=== PATIENT | female | born 1960 | race Caucasian/White ===

== ENCOUNTER 2018-09-04 14:56 | Outpatient (REF) | payer BC, SELFPAY ==
--- NOTE | 2018-09-04 14:45 | PAPFT_PTH ---
PATIENT: Wendy Nicolas LOC: [facility] U#:[id number] AGE/SX: 58/F ROOM: RE09/04/[address]: BART Simental : 1960 BED: DIS: 09/04/2018 SPEC #: [id number] RECD: 09/04/18 17:25 STATUS: UBALDO REVincent #: [id number] CLINT: 09/04/18 14:[address]: Jigna Schmid DEPT: [facility] Cytology RECD BY: Ruba Alberto ENTERED: 09/04/18 17:26 SP TYPE: PAPFT HECTOR DR: Lucy Fine MD Tissues: 1 - CX/ENDOCX FOR PAP SMEARS Procedures: PAP THIN PREP/UVM Screening HPV DNA PROBE Comments: [id number]
== END 2018-09-04 15:16 ==
LOC: LBN 14:56
PROVIDERS: PCP Internal Medicine; Visit Provider Nurse Practitioner Family
DX: Z12.4 Encounter for screening for malignant neoplasm of cervix (principal); Z11.51 Encounter for screening for human papillomavirus (HPV)
CPT/HCPCS: 88142; 87624

== ENCOUNTER 2018-09-19 06:51 | Outpatient (CLI) | payer BC, SELFPAY ==
--- NOTE | 2018-09-19 07:45 | DI.MAMMO_ITS ---
SYMPTOM/DIAGNOSIS: SCREENING, Z12.31 MAMMOGRAMS: Mammograms were interpreted according to the usual protocol including computer analysis with CAD system, tomosynthesis and C view imaging. Comparison is made with prior examinations. Breast density, Category B. No suspicious masses or microcalcifications are seen. There is no definite evidence of malignancy. IMPRESSION: Negative mammogram. Routine screening is recommended. Category 1. MQSA ASSESSMENT OF FINDINGS: Negative. Category 1. Patient will receive a letter notifying them of these results. BI-RADS category B. There are scattered areas of fibroglandular density.
== END 2018-09-19 07:11 ==
PROVIDERS: PCP Internal Medicine; Visit Provider Nurse Practitioner Family
DX: Z12.31 Encounter for screening mammogram for malignant neoplasm of breast (principal)
CPT/HCPCS: 77063; 77067

== ENCOUNTER 2018-09-26 15:57 | Outpatient (REF) | payer BC, SELFPAY ==
--- NOTE | 2018-09-26 15:10 | ENDO_PTH ---
PATIENT: Wendy Nicolas LOC: [facility] U#:[id number] AGE/SX: 58/F ROOM: RE09/26/[address]: Sally Fernandez MD : 1960 BED: DIS: 09/26/2018 SPEC #: [id number] RECD: 09/26/18 17:25 STATUS: UBALDO REQ #: [id number] CLINT: 09/26/18 15:[address]: Sally Fernandez DEPT: Surgical Specimen RECD BY: Ruba Alberto ENTERED: 09/26/18 17:26 SP TYPE: Endo OTHR DR: Lucy Fine MD Tissues: 1 - ENDOCERVICAL BX/CURRETTE Procedures: GROSS AND MICRO LEVEL 4 Comments: [id number]
== END 2018-09-26 16:17 ==
LOC: LBN 15:57
PROVIDERS: PCP Internal Medicine; Visit Provider Obstetrics & Gynecology
DX: N87.9 Dysplasia of cervix uteri, unspecified (principal); R87.610 Atypical squamous cells of undetermined significance on cytologic smear of cervix (ASC-US); R87.810 Cervical high risk human papillomavirus (HPV) DNA test positive
CPT/HCPCS: 88305

== ENCOUNTER 2018-10-16 10:22 | Outpatient (CLI) | payer BC, SELFPAY ==
[2018-10-16 16:20] LABS: Vitamin D 25 Total 67.3 ng/ml (30-100)
== END 2018-10-16 10:42 ==
PROVIDERS: PCP Internal Medicine; Visit Provider Internal Medicine
DX: E55.9 Vitamin D deficiency, unspecified (principal)
CPT/HCPCS: 36415; 82306

== ENCOUNTER 2019-09-28 16:30 | Outpatient (REF) | payer BC, SELFPAY ==
--- NOTE | 2019-09-28 15:50 | PAPFT_PTH ---
PATIENT: Wendy Nicolas LOC: [facility] U#:[id number] AGE/SX: 59/F ROOM: RE09/28/[address]: BART Simental : 1960 BED: DIS: 09/28/2019 SPEC #: [id number] RECD: 10/01/19 12:30 STATUS: UBALDO REVincent #: [id number] CLINT: 09/28/19 15:[address]: Jigna Schmid DEPT: [facility] Cytology RECD BY: Ruba Alberto ENTERED: 10/01/19 12:31 SP TYPE: PAPFT HECTOR DR: Marlys Leggett, PhD DIRECTOR OF HEAD START Tissues: 1 - CX/ENDOCX FOR PAP SMEARS Procedures: PAP THIN PREP/UVM Screening HPV DNA PROBE Comments: [id number]
== END 2019-09-28 16:50 ==
LOC: LBN 16:30
PROVIDERS: PCP Nurse Practitioner; Visit Provider Nurse Practitioner Family
DX: Z12.4 Encounter for screening for malignant neoplasm of cervix (principal); Z11.51 Encounter for screening for human papillomavirus (HPV); R87.610 Atypical squamous cells of undetermined significance on cytologic smear of cervix (ASC-US)
CPT/HCPCS: 88142; 87624

== ENCOUNTER 2019-10-19 03:24 | Outpatient (CLI) | payer BC, SELFPAY ==
--- NOTE | 2019-10-19 15:30 | DI.MAMMO_ITS ---
EXAM: MAMMO SCREENING CLINICAL HISTORY: screening TECHNIQUE: Mammograms were interpreted according to the usual protocol including computer analysis w [employer] system, tomosynthesis and C-view imaging. COMPARISON: FINDINGS: The breasts are of moderate density with fairly symmetrical distribution of fibroglandular tissue. A n area of focal presumably glandular asymmetric density of the upper outer quadrant of the right rebeca st is unchanged comparison with multiple previous examinations including September 11 10 Sep 2017 and August 24. No dominant mass or clumped microcalcification is seen. No other change in appearance comparis on with prior studies. IMPRESSION: No specific evidence of malignancy at this time. Routine examinations are suggested at yearly inter vals in this age group according to the ACS ACR guidelines. BI-RADS Cat 1 - Negative : Breast Density - Category B - Scattered areas of fibroglandular density
== END 2019-10-19 03:44 ==
PROVIDERS: PCP Internal Medicine; Visit Provider Nurse Practitioner Family
DX: Z12.31 Encounter for screening mammogram for malignant neoplasm of breast (principal); N60.81 Other benign mammary dysplasias of right breast
CPT/HCPCS: 77063; 77067

== ENCOUNTER 2019-10-22 10:05 | Outpatient (REF) | payer BC, SELFPAY ==
--- NOTE | 2019-10-22 09:45 | CER_PTH ---
PATIENT: Wendy Nicolas LOC: [facility] U#:[id number] AGE/SX: 59/F ROOM: RE10/22/[address]: Paula Polanco DO : 1960 BED: DIS: 10/22/2019 SPEC #: [id number] RECD: 10/22/19 12:44 STATUS: UBALDO REQ #: [id number] CLINT: 10/22/19 09:[address]: Paula Polanco DEPT: Surgical Specimen RECD BY: Ruba Alberto ENTERED: 10/22/19 12:45 SP TYPE: CER OTHR DR: Lucy Fine MD Tissues: 1 - CERVICAL BIOPSY 2 - ENDOCERVICAL BX/CURRETTE Procedures: GROSS AND MICRO LEVEL 4 Comments: [id number]
== END 2019-10-22 10:25 ==
LOC: LBN 10:05
PROVIDERS: PCP Internal Medicine; Visit Provider Obstetrics & Gynecology
DX: N88.8 Other specified noninflammatory disorders of cervix uteri (principal); R87.610 Atypical squamous cells of undetermined significance on cytologic smear of cervix (ASC-US); R87.810 Cervical high risk human papillomavirus (HPV) DNA test positive; Z87.410 Personal history of cervical dysplasia
CPT/HCPCS: 88305

== ENCOUNTER 2020-01-12 13:58 | Emergency (ER) | payer BC, SELFPAY ==
[2020-01-12 14:05] VITALS: BP 126/80; PULSE 102; RESP 16; TEMP 37; O2SAT 97
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
[2020-01-12] MEDS: Ibuprofen 600 MG TAB PO (14:12)
--- NOTE | 2020-01-12 14:20 | DI.RAD_ITS ---
EXAM: XR ANKLE RT COMPLETE CLINICAL HISTORY: anterior ankle pain. TECHNIQUE: 2D digital imaging was performed. COMPARISON: No exams were available for comparison FINDINGS: BONES: No acute fracture is present. No bony destructive lesion is seen. There is a moderate size pl diogo calcaneal spur. JOINTS: The ankle mortise is normally aligned. SOFT TISSUE: There is soft tissue swelling about the ankle, particularly laterally. IMPRESSION: 1. No acute fracture or dislocation. 2. Soft tissue swelling about the ankle, particularly laterally. DATA REPOSITORY: RADIATION DOSE DELIVERED:
--- NOTE | 2020-01-12 14:46 | DI.VRAD_ITS ---
PROCEDURE INFORMATION: Exam: XR Right Ankle Exam date and time: 01/12/2020 2:26 PM Age: 60 years old Clinical indication: Other: Anterior ankle pain TECHNIQUE: Imaging protocol: XR Right ankle. Views: 3 or more views. COMPARISON: No relevant prior studies available. FINDINGS: Bones/joints: There is ankle joint effusion and diffuse soft tissue ankle swelling, more pronounced over lateral malleolus and over anterior aspect. There is no acute fracture or dislocation. There is no erosion. There is a plantar spur. Soft tissues: There is diffuse soft tissue swelling. IMPRESSION: 1. No acute fracture or dislocation. 2. Ankle Swelling and ankle joint effusion. 3. Plantar spur. Dictated and Authenticated by: Guillermo Vieyra MD. Ordering:MAINOR Teixeira MD
== END 2020-01-12 15:15 | disposition home or self-care (01) ==
PROVIDERS: Emergency Provider Emergency Medicine; PCP Nurse Practitioner
DX: M25.471 Effusion, right ankle (principal); M25.571 Pain in right ankle and joints of right foot; I10 Essential (primary) hypertension
CPT/HCPCS: 99283; 73610; 99284; E0114

== ENCOUNTER 2020-06-17 13:15 | Emergency (ER) | payer OTHER, SELFPAY ==
[2020-06-17] VITALS (34 sets, daily range): BP systolic 130–166; BP diastolic 85–101; PULSE 73–94; RESP 14–26; TEMP 37; O2SAT 95–98
--- NOTE | 2020-06-17 13:00 | RT.EKG_ITS ---
APPROVED REPORT Exam: Resting ECG Patient Location: E HR:79 bpm ECG Measurements Heart Rate 79 AXIS NM 135 P 32 QRSd 93 QRS -57 QT 370 T -19 QTc 423 Conclusion Sinus rhythm...normal P axis, V-rate 60- 99 Left anterior fascicular block...axis(240,-40), init forces inf. 1mm ST depression and T wave inversion in V2-4, lead III, no change from previous. No STEMI. I have reviewed and interpreted ECG and agree with software generated interpretation.
[2020-06-17 13:45] LABS: Abs Immature Grans 0.02 10^3/uL (0.0-0.06); Absolute Basophil Count 0.04 10^3/uL (0.0-0.2); Absolute Eosinophil Count 0.06 10^3/uL (0.0-0.7); Absolute Lymphocyte Count 1.75 10^3/uL (1.2-3.4); Absolute Monocyte Count 0.36 10^3/uL (0.1-0.8); Absolute Neutrophil Count 3.08 10^3/uL (1.2-6.7); Basophils % 0.8; Eosinophils % 1.1; HCT 42.5 % (36.0-46.0); HGB 13.9 g/dL (11.2-15.7); Immature Grans % 0.4; MCH 28.5 pg (27.0-33.0); MCHC 32.7 % (32.0-36.0); MCV 87.3 fL (80-95); MPV 10.4 fL (8.0-11.0); Monocytes % 6.8; Neutrophils % 57.9; Nucleated RBC 0 %; Platelet Count 238 10^3/uL (130-400); RBC 4.87 10^6/uL (3.93-5.22); RDW 12.8 % (11.7-14.6); RDW-SD 41.3 fL; WBC 5.31 10^3/uL (4.4-10.8)
--- NOTE | 2020-06-17 13:50 | DI.RAD_ITS ---
EXAM: XR CHEST 2V PA LATERAL CLINICAL HISTORY: Palpitations TECHNIQUE: 2D digital imaging was performed. COMPARISON: CR CHEST 2 VIEWS PA,LAT from 01/18/2014 FINDINGS: Heart size is normal. The aorta is mildly tortuous. The lungs are well inflated and clear. There i s right upper quadrant surgical clips. Mild degenerative changes are seen in the mid thoracic spine. IMPRESSION: No acute pulmonary findings. DATA REPOSITORY: RADIATION DOSE DELIVERED:
[2020-06-17 14:03] LABS: ALT 20 U/L (14-59); AST 17 U/L (15-37); Albumin 4.1 g/dL (3.4-5.0); Alkaline Phosphatase 70 U/L (46-116); BUN 13 mg/dL (7-18); Bilirubin, Total 0.5 mg/dL (0.2-1.0); CREATININE 0.8 mg/dL (0.55-1.02); Calcium 8.8 mg/dL (8.5-10.1); Chloride 103 mmol/L (98-107); Glucose 104 mg/dL (74-106); Potassium 3.3 mmol/L (3.5-5.1); Sodium 140 mmol/L (136-145); TSH 1.52 uIU/mL (0.36-3.74); Total Protein 7.9 g/dL (6.4-8.2)
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
[2020-06-17 14:07] LABS: Troponin I < 0.05 ng/mL (<0.06)
[2020-06-17] MEDS: Potassium Chloride 20 MEQ TABCR 40 MEQ PO (15:46)
--- NOTE | 2020-06-17 16:15 | RT.EKG_ITS ---
APPROVED REPORT Exam: Resting ECG Patient Location: E HR:71 bpm ECG Measurements Heart Rate 71 AXIS MO 137 P 12 QRSd 92 QRS -25 QT 376 T -24 QTc 409 Conclusion Sinus rhythm...normal P axis, V-rate 60- 99. Less than 1mm ST depression and T wave inversion in III, V2-4. No change from previous. I have reviewed and interpreted ECG and agree with software generated interpretation.
[2020-06-17 16:54] LABS: Troponin I < 0.05 ng/mL (<0.06)
== END 2020-06-17 18:05 | disposition home or self-care (01) ==
PROVIDERS: Physician Assistant; Emergency Provider Physician Assistant; PCP Nurse Practitioner
DX: R00.2 Palpitations (principal); R79.89 Other specified abnormal findings of blood chemistry; I10 Essential (primary) hypertension
CPT/HCPCS: 80053; 93005; 99284; 71046; 83735; 84443; 84484; 85025; 93010

== ENCOUNTER 2020-07-07 03:56 | Outpatient (CLI) | payer OTHER, SELFPAY ==
--- NOTE | 2020-07-22 11:03 | W.ZIOMONITOR ---
Date of service: 07/22/20 Time of Service: 11:03 14 Day Industrial Engineering Manager Referring Provider:: marianne Indications:: palps Note: There is a 14-day monitor order for indication of palpitations. ?The patient was in normal sinus rhythm for the majority of the recording with an average heart rate of 79 bpm. ?There were 12 brief episodes of supraventricular tachycardia with the longest lasting 8 beats. There were rare PACs. ?There were no episodes of ventricular tachycardia and rare PVCs. ?There were no episodes of atrial fibrillation no pauses greater than 3 seconds and no evidence of high degree heart block. ?There were 3 patient triggered events associated with normal sinus rhythm and a singular PVC.
== END 2020-07-07 03:57 | disposition home or self-care (01) ==
LOC: RT 03:56
PROVIDERS: PCP Nurse Practitioner; Visit Provider Nurse Practitioner
DX: R00.2 Palpitations (principal)
CPT/HCPCS: 93246

== ENCOUNTER 2021-01-22 10:04 | Outpatient (REF) | payer BC, SELFPAY ==
--- NOTE | 2021-01-22 09:30 | PAPFT_PTH ---
PATIENT: Wendy Nicolas LOC: [facility] U#:[id number] AGE/SX: 61/F ROOM: RE01/22/[address]: BART Simental : 1960 BED: DIS: 01/22/2021 SPEC #: [id number] RECD: 01/22/21 12:54 STATUS: UBALDO REQ #: [id number] CLINT: 01/22/21 09:[address]: Jigna Schmid DEPT: [facility] Cytology RECD BY: Ruba Alberto ENTERED: 01/22/21 12:55 SP TYPE: PAPFT OTHR DR: Marlys Leggett, PhD COSTUME MISTRESS Tissues: 1 - CX/ENDOCX FOR PAP SMEARS Procedures: PAP THIN PREP/UVM Screening HPV DNA PROBE Comments: [id number]
== END 2021-01-22 10:05 | disposition home or self-care (01) ==
LOC: LBN 10:04
PROVIDERS: PCP Nurse Practitioner; Visit Provider Nurse Practitioner Family
DX: Z12.4 Encounter for screening for malignant neoplasm of cervix (principal); Z11.51 Encounter for screening for human papillomavirus (HPV)
CPT/HCPCS: 88142; 87624

== ENCOUNTER 2021-02-12 01:36 | Outpatient (CLI) | payer BC, SELFPAY ==
--- NOTE | 2021-02-12 08:00 | DI.MAMMO_ITS ---
Exam(s) MAMMO SCREENING EXAM: MAMMO SCREENING CLINICAL HISTORY: screening,Z12.39. TECHNIQUE: Bilateral full field digital CC and MLO mammographic images were obtained with 3D tomosyn thesis and utilizing computer aided detection (CAD). COMPARISON: Prior mammograms dating back to 2011, the most recent being September 2019. FINDINGS: There are no new spiculated masses nor malignant appearing microcalcification groups. There is no significant architectural distortion nor skin thickening-retraction. IMPRESSION: No radiographic evidence of malignancy. BI-RADS Category 1 - Negative Breast Density - Category B - Scattered areas of fibroglandular density Breast density Category C or D implies that the patient has dense breast tissue. Dense breast tissue can make it harder to find cancer on a mammogram. Dense breast tissue is also associated with an incr eased risk of breast cancer. This information about the result of the mammogram report was provided to the patient to raise their awareness. Use this report when you speak with the patient about their risks for breast cancer, which includes their family history. At that time, you may recommend additional screening tests (Ultrasoun d or MRI) as these tests may add significant information. A negative radiographic report should not delay biopsy if a dominant or clinically suspicious mass is present. Up to ten percent of cancers are not identified on mammography. A negative report may reinforce clinical impression. Adenosis and dense breasts may obscure an underlying neoplasm. False positive reports average 6 to 10%. Patient will receive a letter notifying them of these results.
== END 2021-02-12 01:56 ==
PROVIDERS: PCP Nurse Practitioner; Visit Provider Nurse Practitioner
DX: Z12.31 Encounter for screening mammogram for malignant neoplasm of breast (principal)
CPT/HCPCS: 77063; 77067

== ENCOUNTER 2021-03-16 08:48 | Outpatient (REF) | payer BC, SELFPAY ==
--- NOTE | 2021-03-16 08:30 | ENDO_PTH ---
PATIENT: Wendy Nicolas LOC: [facility] U#:[id number] AGE/SX: 61/F ROOM: RE03/16/[address]: Paula Polanco DO : 1960 BED: DIS: 03/16/2021 SPEC #: [id number] RECD: 03/16/21 12:54 STATUS: UBALDO RE #: [id number] CLINT: 03/16/21 08:[address]: Paula Polanco DEPT: Surgical Specimen RECD BY: Ruba Alberto ENTERED: 03/16/21 12:54 SP TYPE: Endo OTHR DR: Marlys Leggett, PhD BANJO REPAIRER Tissues: 1 - ENDOCERVICAL BX/CURRETTE Procedures: GROSS AND MICRO LEVEL 4 Comments: [id number]
== END 2021-03-16 08:49 | disposition home or self-care (01) ==
LOC: LBN 08:48
PROVIDERS: PCP Nurse Practitioner; Visit Provider Obstetrics & Gynecology
DX: R87.810 Cervical high risk human papillomavirus (HPV) DNA test positive (principal)
CPT/HCPCS: 88305

== ENCOUNTER 2021-08-31 15:39 | Outpatient (REF) | payer BC, SELFPAY ==
--- NOTE | 2021-08-31 13:50 | SKI_PTH ---
PATIENT: Wendy Nicolas LOC: [facility] U#:[id number] AGE/SX: 61/F ROOM: RE08/31/[address]: Amanda Reilly : 1960 BED: DIS: 08/31/2021 SPEC #: [id number] RECD: 08/31/21 18:05 STATUS: UBALDO REVincent #: [id number] CLINT: 08/31/21 13:[address]: Amanda Reilly DEPT: Surgical Specimen RECD BY: Ruba Alberto ENTERED: 08/31/21 18:08 SP TYPE: TYRESE YOUNG DR: Marlys Leggett, PhD CS ASSOCIATE Tissues: 1 - SKIN CYST/TAG/DEBRIDEMENT 2 - SKIN CYST/TAG/DEBRIDEMENT Procedures: GROSS AND MICRO LEVEL 3 Comments: [id number]
== END 2021-08-31 15:40 | disposition home or self-care (01) ==
LOC: LBN 15:39
PROVIDERS: PCP Nurse Practitioner; Visit Provider Surgery
DX: L72.12 Trichodermal cyst (principal)
CPT/HCPCS: 88304

== ENCOUNTER 2022-01-16 18:36 | Outpatient (REF) | payer BC, SELFPAY ==
[2022-01-16 19:26] LABS: Anion Gap 9.5 mmol/L (3-11); BUN 12 mg/dL (7-18); CO2 27.5 mmol/L (21.0-32.0); CREATININE 0.7 mg/dL (0.55-1.02); Calcium 9.2 mg/dL (8.5-10.1); Chloride 104 mmol/L (98-107); Estimated GFR 98.34 (mL/min/1.73m2); Glucose 86 mg/dL (74-106); Sodium 141 mmol/L (136-145)
== END 2022-01-16 18:37 | disposition home or self-care (01) ==
LOC: LBN 18:36
PROVIDERS: PCP Nurse Practitioner; Visit Provider Nurse Practitioner Family
DX: Z00.00 Encounter for general adult medical examination without abnormal findings (principal); I10 Essential (primary) hypertension
CPT/HCPCS: 80048

== ENCOUNTER → 2022-02-17 01:52 | Outpatient (CLI) | payer BC, SELFPAY ==
--- NOTE | 2022-02-17 08:00 | DI.MAMMO_ITS ---
Exam(s) MAMMO SCREENING EXAM: MAMMO SCREENING CLINICAL HISTORY: breast cancer screening,z12.39 TECHNIQUE: Bilateral full field digital CC and MLO mammographic images were obtained with 3D tomosyn thesis and utilizing computer aided detection (CAD). COMPARISON: Available for comparison. FINDINGS: Masses/Architectural Distortion: None seen. Microcalcifications: No suspicious pleomorphic-type are seen. Skin Thickening/Nipple Retraction: None. IMPRESSION: 1. No significant interval change with no specific features of malignancy noted. 2. Unless there is more urgent need, screening mammography is recommended, as per [employer] guidelines. BI-RADS Category 1 - Negative Breast Density - Category B - Scattered areas of fibroglandular density Breast density category C or D implies that the patient has dense breast tissue. Dense breast tissue is very common and is not abnormal but dense breast tissue can make it harder to find cancer on a ma mmogram. Also, dense breast tissue may increase their breast cancer risk. This information about the result of the mammogram report was provided to the patient to raise their awareness. Use this report when you speak with the patient about their risks for breast cancer, which includes their family hist ory. At that time, you may recommend for more screening tests (Ultrasound or MRI) as they might be us eful based on their risk. A negative radiographic report should not delay biopsy if a dominant or clinically suspicious mass is present. Up to ten percent of cancers are not identified on mammography. A negative report may reinforce clinical impression. Adenosis and dense breasts may obscure an underlying neoplasm. False positive reports average 6 to 10%. Patient will receive a letter notifying them of these results.
== END ==
PROVIDERS: PCP Nurse Practitioner; Visit Provider Nurse Practitioner Family
DX: Z12.31 Encounter for screening mammogram for malignant neoplasm of breast (principal)
CPT/HCPCS: 77063; 77067

== ENCOUNTER 2022-02-18 14:40 | Outpatient (REF) | payer BC, SELFPAY ==
--- NOTE | 2022-02-18 14:30 | PAPFT_PTH ---
PATIENT: Wendy Nicolas LOC: [facility] U#:[id number] AGE/SX: 62/F ROOM: RE02/18/[address]: Paula Polanco DO : 1960 BED: DIS: 02/18/2022 SPEC #: [id number] RECD: 02/18/22 17:51 STATUS: UBALDO REQ #: [id number] CLINT: 02/18/22 14:[address]: Anisha Treviño DEPT: [facility] Cytology RECD BY: Ruba Alberto ENTERED: 02/18/22 17:51 SP TYPE: PAPFT HECTOR DR: Marlys Leggett, PhD ACTIVITIES DIRECTOR SCOUTING Tissues: 1 - CX/ENDOCX FOR PAP SMEARS Procedures: PAP THIN PREP/UVM Screening HPV DNA PROBE Comments: [id number] (HPV 16 & 18/45)
== END 2022-02-18 14:41 | disposition home or self-care (01) ==
LOC: LBN 14:40
PROVIDERS: PCP Nurse Practitioner; Visit Provider Obstetrics & Gynecology
DX: R87.610 Atypical squamous cells of undetermined significance on cytologic smear of cervix (ASC-US) (principal); Z12.4 Encounter for screening for malignant neoplasm of cervix; R87.810 Cervical high risk human papillomavirus (HPV) DNA test positive; Z11.51 Encounter for screening for human papillomavirus (HPV)
CPT/HCPCS: 88142; 87624

== ENCOUNTER 2022-03-25 12:35 | Outpatient (REF) | payer BC, SELFPAY ==
--- NOTE | 2022-03-25 08:25 | ENDO_PTH ---
PATIENT: Wendy Nicolas LOC: [facility] U#:[id number] AGE/SX: 62/F ROOM: RE03/25/[address]: Paula Polanco DO : 1960 BED: DIS: 03/25/2022 SPEC #: [id number] RECD: 03/25/22 13:06 STATUS: UBALDO RE #: [id number] CLINT: 03/25/22 08:[address]: Paula Polanco DEPT: Surgical Specimen RECD BY: Ruba Alberto ENTERED: 03/25/22 13:06 SP TYPE: Endo OTHR DR: Vineet Ortiz DNP Tissues: 1 - ENDOCERVICAL BX/CURRETTE 2 - CERVICAL BIOPSY Procedures: GROSS AND MICRO LEVEL 4 Comments: [id number]
== END 2022-03-25 12:36 | disposition home or self-care (01) ==
LOC: LBN 12:35
PROVIDERS: PCP Nurse Practitioner Family; Visit Provider Obstetrics & Gynecology
DX: N72 Inflammatory disease of cervix uteri (principal)
CPT/HCPCS: 88305

== ENCOUNTER 2022-11-03 13:35 | Outpatient (REF) | payer BC, SELFPAY | END 2022-11-03 13:36 | disposition home or self-care (01) | LOC: LBN 13:35 | PROVIDERS: PCP Nurse Practitioner Family; Visit Provider Family Medicine | DX: R30.0 Dysuria (principal) | CPT/HCPCS: 87086 ==

== ENCOUNTER 2023-02-09 03:59 | Outpatient (CLI) | payer BC, SELFPAY ==
[2023-02-09 09:26] LABS: ALT 20 U/L (14-59); AST 11 U/L (15-37); Albumin 3.9 g/dL (3.4-5.0); Alkaline Phosphatase 67 U/L (46-116); Anion Gap 7.9 mmol/L (3-11); BUN 22 mg/dL (7-18); Bilirubin, Total 0.8 mg/dL (0.2-1.0); CO2 26.1 mmol/L (21.0-32.0); CREATININE 0.9 mg/dL (0.55-1.02); Calcium 9.2 mg/dL (8.5-10.1); Calculated LDL 105 mg/dL (<100); Chloride 104 mmol/L (98-107); Cholesterol 195 mg/dL (<200); Estimated GFR 72.28 (mL/min/1.73m2); Glucose 99 mg/dL (74-106); HDL Cholesterol 76 mg/dL (40-60); Potassium 3.9 mmol/L (3.5-5.1); Sodium 138 mmol/L (136-145); Total Protein 7.6 g/dL (6.4-8.2); Triglyceride 73 mg/dL (<150)
[2023-02-10 10:47] LABS: HIV-1/2 Ag & Ab Screen Negative (Negative)
[2023-02-10 12:12] LABS: Hepatitis C Ab w Rflx HCV PCR Negative (Negative)
== END 2023-02-09 04:00 | disposition home or self-care (01) ==
LOC: LBO 03:59
PROVIDERS: PCP Nurse Practitioner Family; Visit Provider Nurse Practitioner Family
DX: Z13.220 Encounter for screening for lipoid disorders (principal); Z11.59 Encounter for screening for other viral diseases; Z11.4 Encounter for screening for human immunodeficiency virus [HIV]
CPT/HCPCS: 36415; 80053; 80061; 86803; 87389

== ENCOUNTER 2023-02-22 16:29 | Outpatient (REF) | payer BC, SELFPAY ==
--- NOTE | 2023-02-22 15:20 | PAPFT_PTH ---
PATIENT: Wendy Nicolas LOC: [facility] U#:[id number] AGE/SX: 63/F ROOM: RE02/22/[address]: Paula Polanco DO : 1960 BED: DIS: 02/22/2023 SPEC #: [id number] RECD: 02/22/23 17:18 STATUS: UBALDO REQ #: [id number] CLINT: 02/22/23 15:[address]: Paula Polanco DEPT: [facility] Cytology RECD BY: Ruba Alberto ENTERED: 02/22/23 17:19 SP TYPE: PAPFT OTHR DR: Vineet Ortiz DNP Tissues: 1 - CX/ENDOCX FOR PAP SMEARS Procedures: PAP THIN PREP/UVM Screening HPV DNA PROBE Comments: [id number] (HPV 16 & 18/45)
== END 2023-02-22 16:30 | disposition home or self-care (01) ==
LOC: LBN 16:29
PROVIDERS: PCP Nurse Practitioner Family; Visit Provider Obstetrics & Gynecology
DX: Z12.4 Encounter for screening for malignant neoplasm of cervix (principal)
CPT/HCPCS: 88142; 87624

== ENCOUNTER → 2023-03-09 01:14 | Outpatient (CLI) | payer BC, SELFPAY ==
--- NOTE | 2023-03-09 12:55 | DI.MAMMO_ITS ---
Exam(s) MAMMO SCREENING EXAM: MAMMO SCREENING CLINICAL HISTORY: screening,z12.39. TECHNIQUE: Bilateral full field digital CC and MLO mammographic images were obtained with 3D tomosyn thesis and utilizing computer aided detection (CAD). COMPARISON: Prior mammograms were reviewed. FINDINGS: There has been no significant change in the appearance and distribution of the fibroglandular tissue. Asymmetric tissue upper-outer quadrant right breast is unchanged from all prior mammograms. There are no new spiculated masses nor malignant appearing microcalcification groups. There is no significant architectural distortion nor skin thickening-retraction. IMPRESSION: No radiographic evidence of malignancy. BI-RADS Category 1 - Negative Breast Density - Category B - Scattered areas of fibroglandular density Breast density Category C or D implies that the patient has dense breast tissue. Dense breast tissue can make it harder to find cancer on a mammogram. Dense breast tissue is also associated with an incr eased risk of breast cancer. This information about the result of the mammogram report was provided to the patient to raise their awareness. Use this report when you speak with the patient about their risks for breast cancer, which includes their family history. At that time, you may recommend additional screening tests (Ultrasoun d or MRI) as these tests may add significant information. A negative radiographic report should not delay biopsy if a dominant or clinically suspicious mass is present. Up to ten percent of cancers are not identified on mammography. A negative report may reinforce clinical impression. Adenosis and dense breasts may obscure an underlying neoplasm. False positive reports average 6 to 10%. Patient will receive a letter notifying them of these results.
== END ==
PROVIDERS: PCP Nurse Practitioner Family; Visit Provider Obstetrics & Gynecology
DX: Z12.31 Encounter for screening mammogram for malignant neoplasm of breast (principal)
CPT/HCPCS: 77063; 77067

== ENCOUNTER 2023-04-06 14:01 | Outpatient (REF) | payer BC, SELFPAY ==
--- NOTE | 2023-04-06 13:45 | ENDO_PTH ---
PATIENT: Wendy Nicolas LOC: N U#:[id number] AGE/SX: 63/F ROOM: RE04/06/[address]: Paula Polanco DO : 1960 BED: DIS: 04/06/2023 SPEC #: [id number] RECD: 04/06/23 17:51 STATUS: UBALDO RE #: [id number] CLINT: 04/06/23 13:[address]: Paula Polanco DEPT: Surgical Specimen RECD BY: Ruba Alberto ENTERED: 04/06/23 17:51 SP TYPE: Endo OTHR DR: Vineet Ortiz DNP Tissues: 1 - ENDOCERVICAL BX/CURRETTE 2 - CERVICAL BIOPSY Procedures: GROSS AND MICRO LEVEL 4 IMMUNOPEROXIDASE STAIN Comments: [id number]
== END 2023-04-06 14:02 | disposition home or self-care (01) ==
LOC: LBN 14:01
PROVIDERS: PCP Nurse Practitioner Family; Visit Provider Obstetrics & Gynecology
DX: R87.619 Unspecified abnormal cytological findings in specimens from cervix uteri (principal)
CPT/HCPCS: 88305; 88361

== ENCOUNTER 2024-02-01 11:48 | Outpatient (REF) | payer BC, SELFPAY ==
[2024-02-01 13:57] LABS: Anion Gap 11.6 mmol/L (3-11); BUN 14 mg/dL (7-18); CO2 25.4 mmol/L (21.0-32.0); CREATININE 0.8 mg/dL (0.55-1.02); Calcium 8.7 mg/dL (8.5-10.1); Chloride 109 mmol/L (98-107); Estimated GFR 82.74 (mL/min/1.73m2); Glucose 102 mg/dL (74-106); Potassium 4.2 mmol/L (3.5-5.1); Sodium 146 mmol/L (136-145)
== END 2024-02-01 11:49 | disposition home or self-care (01) ==
LOC: LBN 11:48
PROVIDERS: PCP Nurse Practitioner Family; Visit Provider Nurse Practitioner Family
DX: I10 Essential (primary) hypertension (principal)
CPT/HCPCS: 80048

== ENCOUNTER 2024-03-01 14:16 | Outpatient (REF) | payer BC, SELFPAY ==
--- NOTE | 2024-03-01 14:20 | PAPFT_PTH ---
PATIENT: Wendy Nicolas LOC: [facility] U#:[id number] AGE/SX: 64/F ROOM: RE03/01/[address]: Paula Polanco DO : 1960 BED: DIS: 03/01/2024 SPEC #: [id number] RECD: 03/01/24 18:13 STATUS: UBALDO REQ #: [id number] CLINT: 03/01/24 14:[address]: Paula Polanco DEPT: [facility] Cytology RECD BY: Ruba Alberto ENTERED: 03/01/24 18:13 SP TYPE: PAPFT OTHR DR: Vineet Ortiz DNP Tissues: 1 - CX/ENDOCX FOR PAP SMEARS Procedures: PAP THIN PREP/UVM Screening HPV DNA PROBE Comments: [id number] (HPV 16 & 18/45)
== END 2024-03-01 14:17 | disposition home or self-care (01) ==
LOC: LBN 14:16
PROVIDERS: PCP Nurse Practitioner Family; Visit Provider Obstetrics & Gynecology
DX: Z01.419 Encounter for gynecological examination (general) (routine) without abnormal findings (principal)
CPT/HCPCS: 88142; 87624

== ENCOUNTER 2024-03-27 01:00 | Outpatient (CLI) | payer BC, SELFPAY ==
--- NOTE | 2024-03-27 07:56 | DI.MAMMO_ITS ---
Exam(s) MAMMO SCREENING EXAM: MAMMO SCREENING CLINICAL HISTORY: screening,z12.39 TECHNIQUE: Mammograms were interpreted according to the usual protocol including computer analysis w [employer] CAD system, tomosynthesis and C-view imaging. COMPARISON: 2014 through 2022 FINDINGS: The breasts are composed of scattered fibroglandular densities, Breast Density category B. No suspicious masses or suspicious microcalcifications are seen. No skin thickening or abnormal axillary lymph nodes are seen. There has been no significant change from prior exams. IMPRESSION: BI-RADS Category 1, Negative mammogram Yearly screening mammography is recommended. Breast Density - Category B, scattered fibroglandular densities. A negative radiographic report should not delay biopsy if a dominant or clinically suspicious mass is present. Up to ten percent of cancers are not identified on mammography. A negative report may reinforce clinical impression. Adenosis and dense breasts may obscure an underlying neoplasm. False positive reports average 6 to 10%. Patient will receive a letter notifying them of these results.
== END 2024-03-27 01:20 ==
LOC: DI 01:00
PROVIDERS: PCP Nurse Practitioner Family; Visit Provider Obstetrics & Gynecology
DX: Z12.31 Encounter for screening mammogram for malignant neoplasm of breast (principal); R92.323 Mammographic fibroglandular density, bilateral breasts
CPT/HCPCS: 77063; 77067

== ENCOUNTER 2024-04-09 15:51 | Outpatient (REF) | payer BC, SELFPAY ==
--- NOTE | 2024-04-09 15:30 | ENDO_PTH ---
PATIENT: Wendy Nicolas LOC: [facility] U#:[id number] AGE/SX: 64/F ROOM: RE04/09/[address]: Paula Polanco DO : 1960 BED: DIS: 04/09/2024 SPEC #: [id number] RECD: 04/09/24 17:11 STATUS: UBALDO REQ #: [id number] CLINT: 04/09/24 15:[address]: Paula Polanco DEPT: Surgical Specimen RECD BY: Ruba Alberto ENTERED: 04/09/24 17:12 SP TYPE: Endo OTHR DR: Vineet Ortiz DNP Tissues: 1 - ENDOCERVICAL BX/CURRETTE 2 - CERVICAL BIOPSY Procedures: GROSS AND MICRO LEVEL 4 Comments: [id number]
== END 2024-04-09 15:52 | disposition home or self-care (01) ==
LOC: LBN 15:51
PROVIDERS: PCP Nurse Practitioner Family; Visit Provider Obstetrics & Gynecology
DX: R87.618 Other abnormal cytological findings on specimens from cervix uteri (principal)
CPT/HCPCS: 88305

== ENCOUNTER 2025-03-06 01:53 | Outpatient (CLI) | payer SELFPAY ==
[2025-03-06 08:17] LABS: Abs Immature Grans 0.00 10^3/uL (0.0-0.06); HCT 40.3 % (36.0-46.0); HGB 13.4 g/dL (11.2-15.7); Immature Grans % 0.0 %; MCH 29.5 pg (27.0-33.0); MCHC 33.3 % (32.0-36.0); MCV 89 fL (80-95); MPV 11.3 fL (8.0-11.0); Platelet Count 191 10^3/uL (130-400); RBC 4.54 10^6/uL (3.93-5.22); RDW 12.9 % (11.7-14.6); RDW-SD 42.2 fL; WBC 4.13 10^3/uL (4.4-10.8)
[2025-03-06 08:35] LABS: ALT 11 U/L (10-49); AST 15 U/L (<34); Albumin 4.4 g/dL (3.4-5.0); Alkaline Phosphatase 72 U/L (46-116); Anion Gap 8.5 mmol/L (3-11); BUN 13 mg/dL (9-23); Bilirubin, Total 1.10 mg/dL (0.2-1.2); CO2 27.5 mmol/L (20.0-31.0); Calcium 8.9 mg/dL (8.3-10.6); Chloride 107 mmol/L (98-107); Glucose 103 mg/dL (74-106); Potassium 3.7 mmol/L (3.5-5.1); Sodium 143 mmol/L (136-145); Total Protein 7.1 g/dL (5.7-8.2)
[2025-03-06 08:36] LABS: TSH (W/Ref FT4) 1.34 uIU/mL (0.55-4.78)
== END 2025-03-06 01:54 | disposition home or self-care (01) ==
LOC: LBO 01:53
PROVIDERS: PCP Nurse Practitioner Family; Visit Provider Nurse Practitioner Family
DX: R19.7 Diarrhea, unspecified (principal); R42 Dizziness and giddiness
CPT/HCPCS: 36415; 80053; 84443; 85025

== ENCOUNTER 2025-03-20 10:44 | Outpatient (CLI) | payer BC, SELFPAY ==
[2025-03-20 11:24] LABS: ESR 3 mm/hr (0-30)
== END 2025-03-20 10:45 | disposition home or self-care (01) ==
LOC: LBO 10:44
PROVIDERS: PCP Nurse Practitioner Family; Visit Provider Surgery
DX: R19.7 Diarrhea, unspecified (principal)
CPT/HCPCS: 82784; 83516; 85652; 83630

== ENCOUNTER 2025-03-21 16:08 | Outpatient (REF) | payer BC, SELFPAY ==
[2025-03-23 11:05] LABS: Campylobacter PCR Negative (Negative); Shiga Toxin PCR Negative (Negative); Shigella/Enteroinvasive Ecoli Negative (Negative)
[2025-03-25 14:52] LABS: Helicobacter pylori Ag, Feces Negative (Negative)
== END 2025-03-22 12:32 | disposition home or self-care (01) ==
LOC: LBN 16:08
PROVIDERS: PCP Nurse Practitioner Family; Visit Provider Surgery
DX: R19.7 Diarrhea, unspecified (principal)
CPT/HCPCS: 87015; 87269; 87272; 87338; 87505; 82272; 83630

== ENCOUNTER 2025-03-25 10:33 | Day surgery (SDC) | payer BC, SELFPAY ==
--- NOTE | 2025-03-25 10:41 | W.ANESPRE ---
General Info Date of Service Date Performed: 03/25/25 Height: 5 ft 3 in Weight: 71.781 kg Body Mass Index (BMI): 28.0 Surgical Procedure: Operation Date: 03/25/25 11:50 Proposed Procedure Side Surgeon p Colonoscopy/Gastroscopy Zofia Oseguera MD Meds Allergies and Home Medications Allergies Allergy/AdvReac Type Severity Reaction Status Date / Time lisinopril AdvReac Mild cough Verified 03/25/25 11:04 SEASONAL ALLERGIES Allergy Unknown Wheezing Uncoded 03/25/25 11:04 Home Medication ?Medication ?Instructions ?Recorded cetirizine 10 mg tablet (Zyrtec) 10 mg PO DAILY PRN #90 tab-caps 11/04/14 cholecalciferol (vitamin D3) 25 1,000 unit PO DAILY 01/30/19 mcg (1,000 unit) capsule ibuprofen 600 mg tablet 600 mg PO Q8H PRN pain #30 tabs 02/01/24 losartan 100 mg tablet See Rx Instructions .Route 02/01/24 .COMPLEX #90 tabs fluticasone propionate 50 1 spray intranasal Q12H #16 grams 07/31/24 mcg/actuation nasal spray,suspension (Flonase Allergy Relief) bisacodyl 5 mg tablet,delayed 5 mg PO ONCE colonscopy bowel prep 03/20/25 release (Dulcolax (bisacodyl)) #4 tabs colestipol 1 gram tablet 1 g PO DAILY #30 tabs 03/20/25 polyethylene glycol 3350 17 238 g PO ONCE colonoscopy prep 03/20/25 gram/dose oral powder #238 grams Current Visit Medications: Current Medications Generic Name Dose Route Start Last Admin Trade Name Freq PRN Reason Stop Dose Admin Ringer's Solution 1,000 mls @ 80 mls/hr 03/25/25 06:00 IV 03/25/25 23:59 INFUSION KOLTON Sodium Biphosphate/Sodium Phosphate 133 ml 03/25/25 06:00 Na Phosphate Enema-Adult 133 Ml Btl VA 03/25/25 23:59 DIRECTED PRN Sodium Chloride 0 ml 03/25/25 06:00 Normal Saline Flush 10 Ml Syr IV 03/25/25 23:59 PRN PRN Sodium Chloride 0 ml 03/25/25 06:00 Normal Saline 10 Ml Vial IJ 03/25/25 23:59 DIRECTED PRN Sterile Water 0 ml 03/25/25 06:00 Water,Injection,Sterile 10 Ml Vial IJ 03/25/25 23:59 DIRECTED PRN PFSH Active Problems Active Problems: Problem Status Onset Code Lightheadedness Acute R42 Diarrhea Acute R19.7 Urethral polyp Acute N36.2 Mass of urethra Acute N36.8 Right shoulder pain Acute M25.511 Arthritis Acute M19.90 Annual physical exam Acute Z00.00 Breast cancer screening Acute Z12.39 Cyst Acute Hypertension Chronic I10 ASCUS with positive high risk HPV Acute Hip pain, right Chronic M25.551 Vitamin D deficiency Chronic E55.9 Gastroesophageal reflux Chronic K21.9 Medical History Medical History Influenza-like illness Pilar cyst of scalp Dermoid cyst of scalp Seasonal allergic rhinitis Gallstones Liver cyst Surgical History Surgical History History of cone biopsy of cervix Ligation of fallopian tube 11/1999 Tonsillectomy EGD - MAC (01/14/14) Colonoscopy - MAC (01/11/17) Cholecystectomy 06/1983 Idiopathic scoliosis (~1998) JASSON II Tobacco Smoking/Tobacco Use Status: Former Tobacco Use Passive smoking exposure: Yes Second hand exposure: Yes Alcohol Alcohol Intake: current Alcohol intake frequency: a few times a week Alcohol type: wine and hard liquor Substance Use Substance use type: does not use Prental History History 4 Para 3 Hx # Term Pregnancies Multiple births Hx # Pregnancies Ectopic pregnancies AB induced Hx Number of Living Children AB spontaneous Vital Signs and Lab Results Lab Results Complete Blood Count: WBC, (4.4-10.8) 4.13 10^3/uL L 03/06/25, 08:05 RBC, (3.93-5.22) 4.54 10^6/uL 03/06/25, 08:05 Hgb, (11.2-15.7) 13.4 g/dL 03/06/25, 08:05 Hct, (36.0-46.0) 40.3 % 03/06/25, 08:05 Plt Count, (130-400) 191 10^3/uL 03/06/25, 08:05 Complete Metabolic Panel: Sodium, (136-145) 143 mmol/L 03/06/25, 08:05 Potassium, (3.5-5.1) 3.7 mmol/L 03/06/25, 08:05 Chloride, (98-107) 107 mmol/L 03/06/25, 08:05 Carbon Dioxide, (20.0-31.0) 27.5 mmol/L 03/06/25, 08:05 BUN, (9-23) 13 mg/dL 03/06/25, 08:05 Creatinine, (0.55-1.02) 0.8 mg/dL 03/06/25, 08:05 Est GFR (CKD-EPI 2020), (mL/min/1.73m2) 77.76 03/06/25, 08:05 Calcium, (8.3-10.6) 8.9 mg/dL 03/06/25, 08:05 Albumin, (3.4-5.0) 4.4 g/dL 03/06/25, 08:05 Glucose, (74-106) 103 mg/dL 03/06/25, 08:05 Liver Function Panel: ALT, (10-49) 11 U/L 03/06/25, 08:05 AST, (<34) 15 U/L 03/06/25, 08:05 Thyroid Panel: TSH, (0.55-4.78) 1.34 uIU/mL 03/06/25, 08:05 Anesthesia Assessment and Plan Anesthesia History Personal History: No History of Anesthesia Complications Family History: No Family History of Anesthesia Complications Exercise Tolerance Exercise Tolerance: Metabolic Equivalents>4 Cardiac & Pulmonary Exam Cardiac Exam: Normal S1/S2 Heart Sounds Pulmonary Exam: Clear Bilateral Breath Sounds Implantable Cardiac Device Does patient have a Pacemaker or an ICD?: No Airway Exam Known Difficult Airway: No Mallampati Class: 4 Mouth Opening: Narrow (< 3cm) Thyromental Distance: Greater than 3 cm Neck Range of Motion: Full ROM Neck Circumference: Normal Teeth Condition: Normal Dentition ASA Classification ASA Score: ASA 2 Emergency Case?: No NPO Status NPO Status: NPO Clears >2 hours, Solids >8 hours Anesthesia Plan Resuscitation Status: Full Code Anesthesia Technique: General Anesthesia Airway Planned: Natural Airway Monitors Used: Standard Monitors Preoperative Comments:: 65 yo for EGD/colo. Sig PMHx: HTN (losartan), GERD (occ, no meds). Former smoker (1978), occ EtOH. ECG: sinus. Previous Anes: - colo, prop, natural airway, no issues.
[2025-03-25 10:46] VITALS: BMI 28.0
[2025-03-25 10:58] VITALS: BP 133/97; PULSE 87; RESP 16; TEMP 36.2; O2SAT 98
[2025-03-25] MEDS: Lactated Ringers 1,000 ML 80 ML IV (11:15)
--- NOTE | 2025-03-25 12:45 | BOWEL_PTH ---
PATIENT: Wendy Nicolas LOC: [facility] U#:[id number] AGE/SX: 65/F ROOM: RE03/25/[address]: Zofia Oseguera MD : 1960 BED: DIS: 03/25/2025 SPEC #: [id number] RECD: 03/25/25 18:08 STATUS: UBALDO REVincent #: [id number] CLINT: 03/25/25 12:[address]: Zofia Oseguera DEPT: Surgical Specimen RECD BY: Ruba Alberto ENTERED: 03/25/25 18:10 SP TYPE: Bowel OTHR DR: Vineet Ortiz, POLI Tissues: 1 - BIOPSY BOWEL 2 - STOMACH BIOPSY 3 - BIOPSY BOWEL 4 - BIOPSY BOWEL 5 - BIOPSY BOWEL 6 - BIOPSY BOWEL 7 - BIOPSY BOWEL Procedures: GROSS AND MICRO LEVEL 4 Comments: [id number]
--- NOTE | 2025-03-25 12:48 | W.PM.ENDDOP ---
Date of service: 12/20/24 Time of Service: 12:48 Endoscopy Report DATE OF PROCEDURE: 03/25/25 PRE-OP DIAGNOSIS: diarrhea, enteropathy evaluation POST-OP DIAGNOSIS: same PROCEDURE: EGD with biopsy SURGEON: Zofia Oseguera ANESTHESIA TYPE: General:No Airway ESTIMATED BLOOD LOSS: 2 PATHOLOGY: other (1. duodenum biopsy. 2. antrum biopsy) COMPLICATIONS: None DISPOSITION: same day PROCEDURE DESCRIPTION: Lubricated endoscope was passed through a bite block into the second portion of the duodenum. The endoscope was withdrawn and the duodenum stomach and esophageal mucosa examined. The duodenum appeared normal. There is no inflammation or ulceration or erosion. The antrum appears normal. The fundus appears normal. The cardia appears normal. The endoscope was retroflexed and there is no evidence of hiatal hernia. GE junction is at 37cm from the incisors. The distal esophagus is normal without ulceration, varices or candidiasis. The Z-line is regular and there is no evidence of Chanel's esophagus. Remainder of the esophagus appears normal Cold forceps biopsies obtained from the duodenum the antrum for microscopic evaluation for celiac sprue and H. pylori. The upper digestive system was desufflated and the endoscope withdrawn. No complications. Assessment and plan: Diarrhea change in bowel habits Normal exam. Biopsies taken to evaluate for enteropathy and H pylori. Results follow up in 2 weeks. proceed with colonoscopy.
--- NOTE | 2025-03-25 13:05 | W.COLOREPORT ---
Date of service: 03/25/25 Time of Service: 13:05 Colonoscopy Report Date of procedure: 03/25/25 Pre-op diagnosis general: Diarrhea of unknown origin Post-op diagnosis procedure note: same (Diarrhea of unknown origin) Procedure: Colonoscopy with biopsy Surgeon: Zofia Oseguera Anesthesia Type: General:No Airway Estimated blood loss (mL): 2 Pathology: other (1. Terminal ileum biopsy. 2. ascending colon biopsy. 3. transverse colon biopsy. 4. descending colon biopsy. 5. Rectum biopsy) Complications: None Prep: Miralax/Dulcolax (Good/excellent) Procedure Description: Informed consent was obtained and the patient was taken to the procedure area. The patient was placed in left lateral decubitus position on the procedure table. Timeout was performed. Anesthesia was induced. A lubricated colonoscope was inserted through the anus and passed to the cecum. The cecum was identified by the ileocecal valve and the appendiceal orifice. The scope was then slowly withdrawn and the colonic and rectal mucosa examined. TI intubated and examined. It appears normal. There are no colon or rectal mass lesions, polyps, AVMs. There is no inflammatory change. No diverticulosis was seen. The scope was retroflexed in the anorectal junction examined. Uncomplicated internal hemorrhoids grade 4 and prolapsed external hemorrhoids present. Assessment and plan: Diarrhea change in bowel habits Normal colonoscopy. No sign of inflammatory bowel disease. Follow up biopsies for evaluation of microscopic colitis. Follow up stool and blood studies. Office follow up scheduled. Next screening colonoscopy will be due in 10 years.
[2025-03-25 13:07] VITALS: BP 121/90; PULSE 82; RESP 16; TEMP 36.3; O2SAT 97
--- NOTE | 2025-03-25 13:10 | PDOC.DSDIS_ITS ---
Date of service: 03/25/25 Discharge Plan Disposition Patient Disposition: Home Condition: Stable Discharge Details Reason For Visit: EGD and colonoscopy Attending Provider: Zofia Oseguera Primary Care Provider: Vineet Card Home Meds and New Rx's Prescriptions: Continued losartan 100 mg tablet See Rx Instructions .ROUTE .COMPLEX Qty: 90 4RF Dose Instruction: take 1 tablet by mouth once daily Rx Instructions: take 1 tablet by mouth once daily ibuprofen 600 mg tablet 600 mg PO Q8H PRN (Reason: pain) Qty: 30 0RF colestipol 1 gram tablet 1 g PO DAILY Qty: 30 0RF Patient Comments: not started yet 03/25/25 cholecalciferol (vitamin D3) 1,000 unit capsule 1,000 unit PO DAILY fluticasone propionate [Flonase Allergy Relief] 50 mcg/actuation spray,suspension 1 spray intranasal Q12H Qty: 16 0RF Rx Instructions: administer into each nostril cetirizine [Zyrtec] 10 MG tablet 10 mg PO DAILY PRNQty: 90 Discontinued bisacodyl [Dulcolax (bisacodyl)] 5 mg tablet,delayed release (DR/EC) 5 mg PO ONCE Qty: 4 0RF Rx Instructions: take per colonoscopy instructions polyethylene glycol 3350 17 gram/dose powder 238 g PO ONCE Qty: 238 0RF Rx Instructions: take per colonoscopy instructions Discharge Instructions Additional Instructions: Your EGD and colonoscopy were both normal today. There were no signs of inflammatory bowel disease or other major dangers. There was no sign of cancer. Like we planned, I took biopsies of the areas that are helpful for identifying microscopic problems in. We will review these biopsies at your office follow- up. Go ahead and start the medication that I prescribed to you. I expect it will help with the diarrhea. If you are not having diarrhea you do not need to take it. I will review your lab tests when they are available, and let you know the results. Please call the office if you have any trouble. Stand Alone Forms: Portal Information Activity:: Activity as Tolerated Diet:: As Tolerated Discharge Orders Discharge Orders: Discharge Order (Routine); Ordered 03/25/25 Ordered By: Zofia Oseguera DS: Diagnosis Discharge Diagnosis (1) Diarrhea: Status: Acute (2) Encounter for diagnostic colonoscopy due to change in bowel habits: Status: Acute
--- NOTE | 2025-03-25 13:19 | W.ANESPOSTOP ---
Postoperative Evaluation Date, Time and Location Date Performed: 03/25/25 Time Performed: 13:19 Patient Location: Day Surgery Unit Vital Signs Most Recent Imported Vital Signs: Most Recent Vital Signs Temp Pulse Resp BP Pulse Ox 36.3 C L 82 16 121/90 97 03/25/25 13:07 03/25/25 13:07 03/25/25 13:07 03/25/25 13:07 03/25/25 13:07 Pain Score Most Recent Pain Score: Most Recent Pain Score Pain Level 0 03/25/25 13:07 Assessment Mental Status: Awake (Alert & Oriented to Patient Baseline) Airway and Respiratory Function: Patent airway with normal (patient baseline) respiratory exam Cardiovascular Function: Hemodynamically Stable Hydration Status: Adequately Hydrated Nausea & Vomiting: No Nausea or Vomiting Pain: Pt. Denies Any Pain Peripheral Nerve Block: Patient did not receive a nerve block
[2025-03-25 13:42] VITALS: BP 118/86; PULSE 75; RESP 16; TEMP 36.3; O2SAT 100
== END 2025-03-25 13:48 | disposition home or self-care (01) ==
PROVIDERS: PCP Nurse Practitioner Family; Visit Provider Surgery
PROC: (CPT 45380; principal; 2025-03-25 11:45)
DX: R19.7 Diarrhea, unspecified (principal); R19.4 Change in bowel habit; I10 Essential (primary) hypertension; K21.9 Gastro-esophageal reflux disease without esophagitis; K31.89 Other diseases of stomach and duodenum
CPT/HCPCS: 45380; 43239; 88305; J2250; J2405; J2704

== ENCOUNTER 2025-03-28 10:24 | Outpatient (REF) | payer BC, SELFPAY ==
--- NOTE | 2025-03-28 09:00 | PAPFT_PTH ---
PATIENT: Wendy Nicolas LOC: [facility] U#:[id number] AGE/SX: 65/F ROOM: RE03/28/[address]: Paula Polanco DO : 1960 BED: DIS: 03/28/2025 SPEC #: [id number] RECD: 03/28/25 13:08 STATUS: UBALDO REVincent #: [id number] CLINT: 03/28/25 09:[address]: Paula Polanco DEPT: [facility] Cytology RECD BY: Ruba Alberto ENTERED: 03/28/25 13:08 SP TYPE: PAPFT OTHR DR: Vineet Ortiz DNP Tissues: 1 - CX/ENDOCX FOR PAP SMEARS Procedures: PAP THIN PREP/[facility]VM Screening HPV DNA PROBE Comments: [id number] (HPV 16 & 18/45)
== END 2025-03-28 10:25 | disposition home or self-care (01) ==
LOC: LBN 10:24
PROVIDERS: PCP Nurse Practitioner Family; Visit Provider Obstetrics & Gynecology
DX: R87.612 Low grade squamous intraepithelial lesion on cytologic smear of cervix (LGSIL) (principal)
CPT/HCPCS: 88142; 87624